=== PATIENT | female | born 1935 | race Caucasian/White ===

== ENCOUNTER 2017-01-11 15:11 | Inpatient (IN) | payer MEDICARE, BC ==
[~2017-01-11 15:11] MED LIST: NIFEDIPINE TOP; PROCRIT2000 U/ML IJ; ZESTORETIC 10-1 EACH PO; [UNRECOGNIZED DRUG - OTHER] TOP
[2017-01-11] MEDS ORDERED: HYDROCODON-ACE1 EA16 PO (15:37)
[2017-01-11] MEDS ORDERED: FOSAMAX70 M1 PO (15:37)
[2017-01-11] MEDS ORDERED: GABAPENTIN100 M1 PO (15:38)
[2017-01-11] MEDS ORDERED: NORVASC10 M2 PO (15:38)
[2017-01-11] MEDS ORDERED: SYNTHROID50 MC1 PO (15:38)
[2017-01-11 15:51] LABS: HGB-HEMOGLOBIN 6.9 gm/dl (12.0-15.5); MCH (MEAN CORPUSCULAR HGB) 30.7 pg (28.0-32.0); MCV (MEAN CELL VOLUME) 91.6 fl (82.0-96.0); NEUTROPHIL-AUTOMATED 1.5 tho/cmm (1.6-8.0); RED BLOOD COUNT 2.25 mil/cmm (4.00-5.20); RED CELL DISTRIBUTION WIDTH 20.8 % (12.4-16.4); WHITE BLOOD COUNT 4.3 tho/cmm (4.0-10.0)
[2017-01-11 15:52] LABS: HCT-HEMATOCRIT 20.6 % (34.0-49.0); MCHC MEAN CORPUSCULAR HGB CONC 33.5 % (32.0-36.0)
[2017-01-11] MEDS ORDERED: PREDNISONE1 M1 PO (15:53)
[2017-01-11] MEDS ORDERED: CLARITIN10 M6 PO (15:55)
[2017-01-11] MEDS ORDERED: VITAMIN D35000 UNI3 PO (15:56)
[2017-01-11] MEDS ORDERED: PROBIOTIC1 EA10 PO (15:56)
[2017-01-11] MEDS ORDERED: CALCIUM CITRAT1 EA25 PO (16:00)
[2017-01-11 16:01] LABS: ANION GAP 15 mmol/L (0-20); BLOOD UREA NITROGEN 17 mg/dl (6-24); CALCIUM 9.4 mg/dl (8.5-10.5); CARBON DIOXIDE-VENOUS 22 mmol/L (22-32); CHLORIDE 106 mmol/l (96-110); CREATININE 1.03 mg/dl (0.50-1.10); GLUCOSE 173 mg/dL (70-110); POTASSIUM 3.9 mmol/L (3.7-5.1); SODIUM 139 mmol/L (135-145); eGFR VALUE FOR BLACK 59 mL/Min
[2017-01-11] MEDS ORDERED: CYANOCOBAL1000 MCG/3 SC (21:06)
[2017-01-12 02:42] LABS: ANION GAP 12 mmol/L (0-20); BLOOD UREA NITROGEN 13 mg/dl (6-24); CALCIUM 8.6 mg/dl (8.5-10.5); CARBON DIOXIDE-VENOUS 24 mmol/L (22-32); CHLORIDE 110 mmol/l (96-110); CREATININE 0.99 mg/dl (0.50-1.10); GLUCOSE 118 mg/dL (70-110); POTASSIUM 4.5 mmol/L (3.7-5.1); SODIUM 141 mmol/L (135-145); eGFR VALUE FOR BLACK 62 mL/Min
[2017-01-12 03:11] LABS: MCV (MEAN CELL VOLUME) 87.1 fl (82.0-96.0); NEUTROPHIL-AUTOMATED 1.7 tho/cmm (1.6-8.0); RED BLOOD COUNT 3.19 mil/cmm (4.00-5.20); RED CELL DISTRIBUTION WIDTH 20.1 % (12.4-16.4); WHITE BLOOD COUNT 4.1 tho/cmm (4.0-10.0)
[2017-01-12 03:28] LABS: HCT-HEMATOCRIT 27.8 % (34.0-49.0); HGB-HEMOGLOBIN 9.4 gm/dl (12.0-15.5); MCH (MEAN CORPUSCULAR HGB) 29.4 pg (28.0-32.0); MCHC MEAN CORPUSCULAR HGB CONC 33.8 % (32.0-36.0)
[2017-01-12 03:30] LABS: PLATELET COUNT 28 tho/cmm (150-450)
[2017-01-12 06:51] LABS: BAND % 19 % (0-20); BAND ABSOLUTE COUNT 0.8 tho/cmm (0-2.0); EOSINOPHIL % 1 % (0-7)
[2017-01-12 06:57] LABS: WBC MORPHOLOGY DOHLE BODIES
[2017-01-12 10:21] LABS: BAND % 25 % (0-20); BAND ABSOLUTE COUNT 1.1 tho/cmm (0-2.0)
[2017-01-12 10:27] LABS: PLATELET COUNT 33 tho/cmm (150-450)
[2017-01-12 10:34] LABS: BLAST ABSOLUTE COUNT 1.1 tho/cmm (0)
[2017-01-12 10:35] LABS: BLAST % 25 % (0)
[2017-01-12 10:37] LABS: BLAST % 25 % (0)
[2017-01-13 05:24] LABS: INR 1.4 INR (0.9-1.1); PROTHROMBIN TIME 16.4 SECONDS (9.0-13.6)
[2017-01-13 05:53] LABS: HCT-HEMATOCRIT 27.8 % (34.0-49.0); HGB-HEMOGLOBIN 9.3 gm/dl (12.0-15.5); MCH (MEAN CORPUSCULAR HGB) 29.4 pg (28.0-32.0); MCHC MEAN CORPUSCULAR HGB CONC 33.5 % (32.0-36.0); NEUTROPHIL-AUTOMATED 1.4 tho/cmm (1.6-8.0); RED BLOOD COUNT 3.16 mil/cmm (4.00-5.20); RED CELL DISTRIBUTION WIDTH 20.5 % (12.4-16.4); WHITE BLOOD COUNT 4.7 tho/cmm (4.0-10.0)
[2017-01-13 05:59] LABS: PLATELET COUNT 30 tho/cmm (150-450)
[2017-01-13 07:39] LABS: BAND % 18 % (0-20); BAND ABSOLUTE COUNT 0.8 tho/cmm (0-2.0); EOSINOPHIL % 1 % (0-7); WBC MORPHOLOGY DOHLE BODIES
[2017-01-13 07:40] LABS: BLAST % 31 % (0)
[2017-01-13 07:41] LABS: BLAST ABSOLUTE COUNT 1.5 tho/cmm (0)
[2017-01-13] MEDS ORDERED: LEVAQUIN500 M1 PO (12:59)
[2017-01-13] MEDS ORDERED: DIFLUCAN100 M1 PO (12:59)
[2017-01-13] MEDS ORDERED: ZOVIRAX200 M1 PO (13:00)
[2017-01-13] MEDS ORDERED: MOTRIN IB200 M1 PO (13:01)
[2017-01-13] MEDS ORDERED: NORCO 5-325 TA1 EACH PO (13:02)
[2017-01-13] MEDS ORDERED: TYLENOL325 M2 PO (13:03)
[2017-01-13] MEDS ORDERED: COLACE100 M1 PO (13:04)
[2017-01-20] MEDS ORDERED: ZARXIO480 MCG/0. SC (10:24)
[2017-01-20] MEDS ORDERED: PROCRIT20000 UNIT SC (10:24)
== END 2017-01-13 15:15 | DRG 841 ==
LOC: EDMED 15:11 → EMR2 18:51 → CAR1 20:50
PROVIDERS: Emergency Medicine; Internal Medicine Medical Oncology; Radiology Diagnostic Radiology; ADMIT Family Medicine
PROC: 05H533Z Insertion of Infusion Device into Right Subclavian Vein, Percutaneous Approach (ICD-10-PCS; 2017-01-12)
PROC: 30243N1 Transfusion of Nonautologous Red Blood Cells into Central Vein, Percutaneous Approach (ICD-10-PCS; 2017-01-12)
PROC: 07DR3ZX Extraction of Iliac Bone Marrow, Percutaneous Approach, Diagnostic (ICD-10-PCS; principal; 2017-01-13)
DX: C92.Z0 Other myeloid leukemia not having achieved remission (principal); D61.818 Other pancytopenia; D64.1 Secondary sideroblastic anemia due to disease; J44.9 Chronic obstructive pulmonary disease, unspecified; I10 Essential (primary) hypertension; R07.89 Other chest pain; M62.838 Other muscle spasm; M19.90 Unspecified osteoarthritis, unspecified site; M81.0 Age-related osteoporosis without current pathological fracture; E03.9 Hypothyroidism, unspecified; E53.8 Deficiency of other specified B group vitamins; Z66 Do not resuscitate
CPT/HCPCS: C1751; C1830; C8929; G0364; G0378; J2250; J2270; J3010; J7030; J7512; P9016

== ENCOUNTER 2017-01-20 10:37 | Inpatient (IN) | payer MEDICARE, BC ==
[~2017-01-20 10:37] MED LIST changes: +CALCIUM CITRAT1 EA25 PO; +CLARITIN10 M6 PO; +COLACE100 M1 PO; +CYANOCOBAL1000 MCG/3 SC; +DIFLUCAN100 M1 PO; +FOSAMAX70 M1 PO; +GABAPENTIN100 M1 PO; +HYDROCODON-ACE1 EA16 PO; +LEVAQUIN500 M1 PO; +MOTRIN IB200 M1 PO; +NORCO 5-325 TA1 EACH PO; +NORVASC10 M2 PO; +PREDNISONE1 M1 PO; +PROBIOTIC1 EA10 PO; +PROCRIT20000 UNIT SC; +SYNTHROID50 MC1 PO; +TYLENOL325 M2 PO; +VITAMIN D35000 UNI3 PO; +ZARXIO480 MCG/0. SC; +ZOVIRAX200 M1 PO
[2017-01-20] MEDS ORDERED: MIRALAX17 G2 PO (11:19)
[2017-01-20] MEDS ORDERED: DURAGESIC1 EAC5 TOP (13:16)
[2017-01-21 05:15] LABS: HCT-HEMATOCRIT 24.6 % (34.0-49.0); HGB-HEMOGLOBIN 8.3 gm/dl (12.0-15.5); LYMPH % 62.7 % (20-45); LYMPH ABSOLUTE COUNT 0.3 tho/cmm (0.8-4.5); MCH (MEAN CORPUSCULAR HGB) 29.6 pg (28.0-32.0); MCHC MEAN CORPUSCULAR HGB CONC 33.7 % (32.0-36.0); MCV (MEAN CELL VOLUME) 87.9 fl (82.0-96.0); MONO % 19.6 % (0-12); MONOCYTE ABSOLUTE COUNT 0.1 tho/cmm (0.0-1.2); NEUTROPHILS % 17.7 % (40-80); RED CELL DISTRIBUTION WIDTH 20.9 % (12.4-16.4)
[2017-01-21 05:36] LABS: ALB/GLOB RATIO 0.5 (0.8-2.0); ALBUMIN 2.4 g/dl (3.5-5.0); ALKALINE PHOSPHATASE 109 U/L (33-138); ALT/SGPT 27 U/L (12-78); ANION GAP 20 mmol/L (0-20); AST/SGOT 40 U/L (10-40); BILIRUBIN,TOTAL 0.6 mg/dl (0-1.5); BLOOD UREA NITROGEN 26 mg/dl (6-24); CALCIUM 8.4 mg/dl (8.5-10.5); CARBON DIOXIDE-VENOUS 22 mmol/L (22-32); CHLORIDE 99 mmol/l (96-110); CREATININE 1.08 mg/dl (0.50-1.10); GLUCOSE 123 mg/dL (70-110); SODIUM 137 mmol/L (135-145); eGFR VALUE FOR BLACK 56 mL/Min
[2017-01-21 05:40] LABS: PLATELET COUNT 13 tho/cmm (150-450); WHITE BLOOD COUNT 0.5 tho/cmm (4.0-10.0)
[2017-01-21 05:41] LABS: NEUTROPHIL ABSOLUTE COUNT 0.1 tho/cmm (1.6-8.0)
[2017-01-22] MEDS ORDERED: MORPHINE S20 MG/1 M1 PO/SL (13:15)
[2017-01-22] MEDS ORDERED: METHADOSE10 MG/1 ML PO (13:15)
[2017-01-22] MEDS ORDERED: SENOKOT8.6 M1 PO (13:19)
[2017-01-22] MEDS ORDERED: DULCOLAX5 M1 PR (13:19)
== END 2017-01-22 16:50 | disposition hospice, home (50) | DRG 841 ==
LOC: 5WF 10:37
PROVIDERS: ADMIT Internal Medicine Hematology & Oncology
PROC: BD14YZZ Fluoroscopy of Colon using Other Contrast (ICD-10-PCS; principal; 2017-01-21)
DX: C92.Z0 Other myeloid leukemia not having achieved remission (principal); D61.818 Other pancytopenia; Z51.5 Encounter for palliative care; Z66 Do not resuscitate; R07.81 Pleurodynia; M54.9 Dorsalgia, unspecified; E03.9 Hypothyroidism, unspecified; K56.41 Fecal impaction; R19.7 Diarrhea, unspecified; K64.8 Other hemorrhoids; R62.7 Adult failure to thrive; Z85.850 Personal history of malignant neoplasm of thyroid; E53.8 Deficiency of other specified B group vitamins
CPT/HCPCS: J2212; J3010; J7512